=== PATIENT | female | born 1995 | race African-American/Black ===

== ENCOUNTER 2022-01-30 10:19 | Emergency (ER) | payer MEDICAID ==
[~2022-01-30] VITALS: Ht 167.6 cm; Wt 89.0 kg
[~2022-01-30 10:19] MED LIST: CELEXA; LITHIUM; SEROQUEL
[2022-01-30] MEDS ORDERED: MORPHINE SULFATE 4 MG/ML CPJ (NOT FOR IM USE) IV STA (10:30)
[2022-01-30] MEDS ORDERED: ONDANSETRON HCL 4MG/2ML INJ IV STA (10:30)
[2022-01-30 11:00] LABS: HEMATOCRIT. 45.3 % (36.0-48.0); MEAN CORPUSCULAR HEMOGLOBIN 31.3 pg (28.0-32.0); MEAN CORPUSCULAR VOLUME 94.9 fL (81.0-99.0); MEAN PLATELET VOLUME 9.5 fl (7.4-10.4); PLATELET 327 x1000/uL (130-400); RED BLOOD CELL COUNT 4.78 mill/uL (4.2-5.4); RED CELL DISTRIBUTION WIDTH 14.2 % (11.6-14.6)
[2022-01-30 11:06] LABS: CHLORIDE 104 mEq/L (98-107)
[2022-01-30 11:08] LABS: HCG SCREEN NEGATIVE
[2022-01-30 11:11] LABS: PROTHROMBIN TIME 10.4 sec (9.6-11.0)
[2022-01-30 11:44] LABS: CLARITY URINE CLOUDY (CLEAR); COLOR URINE YELLOW (YELLOW); KETONES URINE 2+ (NEGATIVE); LEUKOCYTE ESTERASE URINE NEGATIVE (NEGATIVE); NITRITE URINE NEGATIVE (NEGATIVE); OCCULT BLOOD URINE 1+ (NEGATIVE); PH URINE 5.5 (4.5-8.0); PROTEIN URINE 2+ (NEGATIVE); SPECIFIC GRAVITY URINE 1.041 (1.005-1.030); UROBILINOGEN URINE 0.2 E.U./dL (0.2-1.0)
[2022-01-30 12:10] LABS: PLATELET ESTIMATE NORMAL
[2022-01-30] MEDS ORDERED: TOPUD PO (12:26)
[2022-01-30] MEDS ORDERED: ONDA4TAB50 PO (12:26)
[2022-01-30 13:09] VITALS: BP 135/101
== END 2022-01-30 13:17 | disposition home or self-care (01) ==
LOC: ER 10:19
DX: R10.84 Generalized abdominal pain (principal); R03.0 Elevated blood-pressure reading, without diagnosis of hypertension; R00.0 Tachycardia, unspecified; Z88.0 Allergy status to penicillin
CPT/HCPCS: 36415; 74176; 80053; 81003; 81025; 83690; 84703; 85025; 85610; 96374; 96375; 99284; J2270; J2405